=== PATIENT | male | born 1955 | race Caucasian/White ===

== ENCOUNTER → 2018-04-24 | Outpatient (CLI) | payer OTHER | LOC: FIMAGING 07:50 | PROVIDERS: ATTEND Internal Medicine | DX: M25.551 Pain in right hip (principal); R10.31 Right lower quadrant pain; R59.0 Localized enlarged lymph nodes ==

== ENCOUNTER 2018-07-11 11:49 | Emergency (ER) | payer OTHER ==
[2018-07-11 12:14] VITALS: BP 123/87
== END 2018-07-11 12:17 | disposition left against medical advice (07) ==
DX: Z53.21 Procedure and treatment not carried out due to patient leaving prior to being seen by health care provider (principal)